=== PATIENT | female | born 1950 | race Caucasian/White ===

== ENCOUNTER 2021-02-12 11:30 | Emergency (ER) | payer MEDICARE, OTHER ==
[~2021-02-12] VITALS: Ht 160 cm; Wt 70.8 kg
[2021-02-12 11:39] VITALS: BP 147/80
--- NOTE | 2021-02-12 11:42 | NUR ---
AT BEDSIDE FOR EVAL.
[2021-02-12] MEDS ORDERED: MUPI22OI2 TP (11:58)
--- NOTE | 2021-02-12 12:05 | NUR ---
Patient discharged to home in stable condition. Written and verbal after care instructions given. Patient verbalizes understanding of instruction.
== END 2021-02-12 12:06 | disposition home or self-care (01) ==
LOC: ER 11:33
DX: L08.9 Local infection of the skin and subcutaneous tissue, unspecified (principal); L98.9 Disorder of the skin and subcutaneous tissue, unspecified